=== PATIENT | female | born 1990 | race Caucasian/White ===

== ENCOUNTER 2021-11-09 19:55 | Emergency (ER) | payer OTHER, SELFPAY ==
--- NOTE | ~2021-11-09 | XR_ITS ---
EXAMINATION: XR chest 2V Exam Date/Time: 11/09/2021 20:25 CDT HISTORY: CP Comparison: 11/19/2018. RESULT: Lines, tubes, and devices: None. Lungs and pleura: Clear. Cardiomediastinal silhouette: Stable cardiomediastinal silhouette. Other: No acute osseous or upper abdominal finding. IMPRESSION: No acute cardiopulmonary process. Reviewed, dictated and finalized at location K.
--- NOTE | 2021-11-09 20:01 | ECG_ITS ---
Measurements Intervals [place] Rate: 70 P: 35 OK: 160 QRS: 24 QRSD: 89 T: 28 QT: 384 QTc: 416 Interpretive Statements SINUS RHYTHM NORMAL ECG COMPARED TO ECG 11/19/2018 20:00:21 NO SIGNIFICANT CHANGES Electronically Signed On 11-10-2021 10:22:06 CDT by Ld Hutson M.D.
[2021-11-09 20:14] VITALS: BP 140/94; PULSE 75; RESP 16; TEMP 36.3; O2SAT 100
[2021-11-09 20:18] LABS: Basophils Percent Auto 0.4 % (0.2-1.2); Eosinophils Absolute Auto 0.2 K/mm3 (0-0.3); Eosinophils Percent Auto 3.3 % (0-4.4); Hematocrit 38.9 % (37.0-47.0); Hemoglobin 13.1 g/dL (12.0-15.0); Immature Granulocyte Absolute 0.01 K/mm3 (0.00-0.031); Immature Granulocyte Percent A 0.1 % (0-0.5); Lymphocytes Absolute Auto 1.76 K/mm3 (0.9-3.2); Lymphocytes Percent Auto 25.5 % (18.3-44.2); Mean Corpuscular HGB Conc 33.7 g/dl (32-36); Mean Corpuscular Hemoglobin 29.9 pg (26-34); Mean Corpuscular Volume 88.8 fl (80-100); Mean Platelet Volume 9.5 fl (7.4-10.4); Monocytes Absolute Auto 0.4 K/mm3 (0.1-0.6); Monocytes Percent Auto 5.1 % (2.6-8.5); Neutrophils Absolute Auto 4.5 K/mm3 (1.3-6.7); Neutrophils Percent Auto 65.6 % (45.5-73.1); Platelet Count Result 302 k/mm3 (150-375); Red Blood Count 4.38 M/mm3 (4.2-5.4); Red Cell Distribution Width 12.3 % (11.5-14.5); White Blood Count 6.9 K/mm3 (4.5-10.0)
[2021-11-09 20:28] LABS: Alanine Aminotransferase 16 U/L (6-35); Albumin Level 4.6 g/dL (3.5-5.1); Alkaline Phosphatase 77 U/L (38-126); Anion Gap 5 mmol/L (8-16); Aspartate Amino Transferase 25 U/L (14-36); Bilirubin,Total 0.7 mg/dL (0.2-1.3); Blood Urea Nitrogen 10 mg/dL (7-17); Calcium 9.1 mg/dL (8.4-10.2); Carbon Dioxide 30 mmol/L (22-30); Chloride 104 mmol/L (98-107); Estimated CRCL calculation 107 ml/min; Estimated Glomerular Filt Rate > 60; Glucose 123 mg/dL (65-110); Lipase 67 U/L (23-300); Potassium 3.8 mmol/L (3.4-5.0); Sodium 139 mmol/L (137-145)
[2021-11-09 20:29] LABS: Partial Thromboplastin Time 30.4 SECONDS (22.3-36.8); Prothrombin Time 12.7 Seconds (11.1-14.7)
[2021-11-09 20:39] LABS: Troponin I < 0.012 ng/mL (0.000-0.034)
[2021-11-09] MEDS: ASPIRIN 81 MG CHEWABLE TABLET 324 MG PO (20:52)
[2021-11-09 20:58] VITALS: BP 139/94; PULSE 78; RESP 18; O2SAT 99
--- NOTE | 2021-11-09 21:19 | ED.CHESTPAIN ---
HPI - Chest Pain General Chief Complaint: Chest Pain Stated Complaint: CP Time Seen by Provider: 11/09/21 20:48 Source: patient History of Present Illness HPI narrative: Patient presents with chest pain. Patient reports symptoms started approximately 24 hours ago evidence constant achy no radiation no clear aggravating or alleviating factors. Surgery was at work when the symptoms started she left work took an aspirin slept. Her symptoms have persisted so she came to the ER for further evaluation. She denies any shortness of breath or dizziness she denies any exertional component to her pain denies any nausea vomiting or diaphoresis denies any significant family history. She does report she smokes intermittently denies any recent hospitalizations or surgeries denies prior history of blood clots. Related Data Allergies Allergy/AdvReac Type Severity Reaction Status Date / Time No Known Allergies Allergy Verified 11/19/18 20:57 Review of Systems Review of Systems: CONSTITUTIONAL: Denies fever, chills, or sweats. EYES: Denies visual changes, redness, or discharge. ENT: Denies rhinorrhea, congestion, sore throat, or otalgia. CARDIOVASCULAR: Denies palpitations, or edema. RESPIRATORY: Denies cough or dyspnea. GASTROINTESTINAL: Denies abdominal pain, nausea, vomiting, or diarrhea. GENITOURINARY: Denies dysuria or hematuria. SKIN: Denies rash or itching. MUSCULOSKELETAL: Denies back pain, joint pain, or myalgia. NEUROLOGIC: Denies headache, numbness, dizziness, or weakness. PSYCHIATRIC: Denies anxiety or depression. All systems reviewed & are unremarkable except as noted in HPI and below Exam Narrative: GENERAL: Well-appearing, well-nourished, and in no acute distress. HEAD: Normocephalic, atraumatic. EYES: PERRLA and EOMI. ENT: Nares clear, no rhinorrhea or epistaxis. Mucous membranes moist. NECK: Supple. No masses. No JVD CHEST: Clear to auscultation. No respiratory distress. No wheezes rales or rhonchi HEART: Regular rate and rhythm. No murmur heard. Normal peripheral pulses. ABDOMEN: Soft, nontender, nondistended, normal active bowel sounds. EXTREMITIES: Normal range of motion. No edema. SKIN: Warm, dry, no rash. NEURO: No focal deficits. Alert and oriented x3. PSYCH: Normal mood and affect. Course Reevaluation(s) Reevaluation #1: Results and plan reviewed with patient. Patient is comfortable with the outpatient plan. Date: 11/09/21 Time: 21:21 Vital Signs Vital signs: Vital Signs Temperature 36.3 C L 11/09/21 20:14 Pulse Rate 75 11/09/21 20:14 Respiratory Rate 16 11/09/21 20:14 Blood Pressure 140/94 H 11/09/21 20:14 Pulse Oximetry 100 11/09/21 20:14 Oxygen Delivery Room Air 11/09/21 20:14 Temperature 36.3 C L 11/09/21 20:14 Pulse Rate 82 11/09/21 21:55 Respiratory Rate 16 11/09/21 21:55 Blood Pressure 130/93 H 11/09/21 21:55 Pulse Oximetry 100 11/09/21 21:55 Oxygen Delivery Room Air 11/09/21 20:14 MDM - Chest Pain MDM Narrative Medical decision making narrative: H&P as above, vss, pt looks clinically well, exam reassuring, labs clinically unremarkable to include a negative troponin after 24 hours of symptoms img without acute process, additional labs/img considered, symptomatic relief available as needed, on reevaluation pt continues to looks clinically well. Syndrome and of unclear etiology low concern for ACS patient is low risk with a heart score low concern for PE patient is PERC negative low concern for dissection, pneumothorax, hemothorax, severe sepsis, severe dehydration. plan to tx/monitor as op w/ pcm f/u findings/plan discussed with pt, pt agree/comfortable with plan, return precautions given Lab Data Result diagrams: 11/09/21 20:12 11/09/21 20:12 Labs: Lab Results 11/09/21 11/09/21 11/09/21 Range/Units 20:12 20:12 20:12 WBC 6.9 (4.5-10.0) K/mm3 RBC 4.38 (4.2-5.4) M/mm3 Hgb 13.1 (12.0-15.0) g/dL Hct 3
[2021-11-09 21:55] VITALS: BP 130/93; PULSE 82; RESP 16; O2SAT 100
== END 2021-11-09 22:00 | disposition home or self-care (01) ==
PROVIDERS: Emergency Provider Emergency Medicine; PCP Physician Assistant
DX: R07.9 Chest pain, unspecified (principal)
CPT/HCPCS: 36415; 71046; 80053; 83690; 84484; 85025; 85610; 85730; 93005; 99284; A9270